=== PATIENT | male | born 1965 ===

== ENCOUNTER 2018-10-29 18:38 | Emergency (ER) | payer SELFPAY ==
[2018-10-29 18:52] VITALS: TEMP 98.1
[2018-10-29] MEDS ORDERED: Aspirin 325 mg EC Tablets PO ONE (19:35)
[2018-10-29] MEDS ORDERED: Aspirin 325 mg EC Tablets PO STA (20:06)
[2018-10-29 20:27] VITALS: O2SAT 100
[2018-10-29 20:27] LABS: BASO # 0.1 K/uL (0.0-0.2); BASO % 0.6 % (0.0-2.0); EOS # 0.2 K/uL (0.0-0.7); EOS % 1.3 % (0.0-4.0); HEMOGLOBIN 15.7 g/dL (12.0-18.0); LYMPH # 3.3 K/uL (1.0-4.3); LYMPH % 21.7 % (20.0-40.0); MEAN CELL VOLUME 90.5 fl (80.0-94.0); MEAN CORPUSCULAR HEMOGLOBIN 30.6 pg (27.0-31.0); MEAN CORPUSCULAR HGB CONC 33.8 g/dL (33.0-37.0); MEAN PLATELET VOLUME 8.4 fl (7.2-11.7); MONO # 1.1 K/uL (0.0-0.8); MONO % 7.6 % (0.0-10.0); NEUT # 10.4 K/uL (1.8-7.0); NEUT % 68.8 % (50.0-75.0); NRBC % 0.1 % (0.0-0.0); RBC 5.14 Mil/uL (4.40-5.90); RED CELL DISTRIBUTION WIDTH 13.6 % (11.5-14.5); WHITE BLOOD COUNT 15.1 K/uL (4.8-10.8)
[2018-10-29 20:33] LABS: BLOOD UREA NITROGEN 20 mg/dl (9-20); CALCIUM 10.2 mg/dL (8.4-10.2); GFR NON-AFRICAN AMERICAN > 60
[2018-10-29 21:07] VITALS: BP 172/115; PULSE 83; RESP 20
--- NOTE | 2018-10-29 21:07 | ED PDOC ---
HPI: Chest Pain Time Seen by Provider: 10/29/18 19:21 Chief Complaint (Nursing): Chest Pain Chief Complaint (Provider): Chest Pain History Per: Patient History/Exam Limitations: no limitations Onset/Duration Of Symptoms: Days (x 1 month) Current Symptoms Are (Timing): Still Present Quality: "Pain" Additional Complaint(s): 53 year old male with HTN presents to the ED for evaluation of one month of chest pain. Patient was initially saying there was no change to chest pain. However, on further questioning, he reports pain is radiating to his back and admits to feel short of breath. Patient does not know the name of his HTN medications or the name of his doctor. No nausea, vomiting, sweats and radiation to jaw, neck or arms. Past Medical History Reviewed: Historical Data, Nursing Documentation, Vital Signs Vital Signs: Last Vital Signs Temp 98.1 F 10/29/18 18:50 Pulse 88 10/29/18 20:15 Resp 18 10/29/18 18:50 BP 177/99 H 10/29/18 20:15 Pulse Ox 100 10/29/18 20:15 - Medical History PMH: HTN - Surgical History Surgical History: No Surg Hx - Family History Family History: States: Unknown Family Hx - Allergies Allergies/Adverse Reactions: Allergies Allergy/AdvReac Type Severity Reaction Status Date / Time No Known Allergies Allergy Verified 10/29/18 18:50 Review of Systems ROS Statement: Except As Marked, All Systems Reviewed And Found Negative Constitutional: Negative for: Fever Cardiovascular: Positive for: Chest Pain Respiratory: Positive for: Shortness of Breath Gastrointestinal: Negative for: Nausea, Vomiting, Abdominal Pain Musculoskeletal: Positive for: Back Pain. Negative for: Neck Pain, Arm Pain Physical Exam - Reviewed Nursing Documentation Reviewed: Yes Vital Signs Reviewed: Yes - Physical Exam Appears: Positive for: Well, Non-toxic, No Acute Distress Head Exam: Positive for: ATRAUMATIC, NORMAL INSPECTION, NORMOCEPHALIC Skin: Positive for: Normal Color, Warm, Dry Eye Exam: Positive for: EOMI, Normal appearance, PERRL Cardiovascular/Chest: Positive for: Regular Rate, Rhythm. Negative for: Gallop, Murmur, Friction Rub Respiratory: Positive for: Normal Breath Sounds. Negative for: Wheezing, Respiratory Distress Pulses-Radial (L): 2+ Pulses-Radial (R): 2+ Gastrointestinal/Abdominal: Positive for: Normal Exam, Soft. Negative for: Tenderness Extremity: Positive for: Normal ROM (x 4). Negative for: Deformity Neurological/Psych: Positive for: Awake, Alert, Normal Tone, Oriented (x 3). Negative for: Motor/Sensory Deficits - Laboratory Results Result Diagrams: 10/29/18 20:00 10/29/18 20:00 Lab Results: Troponin I 37.8000 ng/mL (0.00-0.120) H* 10/29/18 20:00 - ECG O2 Sat by Pulse Oximetry: 100 (RA) Pulse Ox Interpretation: Normal - Core Measure Core Measure Indicators: Code Heart - Critical Care Total Time (In Min): 60 Documented Critical Care: Time excludes all time spent performint seperately billable procedures Medical Decision Making Medical Decision Makin:23 MDM: cardiac workup Initial EKG showing ST elevation V2, V3 without reciprocal change. 20:[address] Colvin. Sending an image of the first EKG done at 18:46. It was read as NSR without ST/T changes. However, there is mild ST elevation. Obtaining repeat EKG. 20:54 Repeat EKG shows elevation and labs reveal troponin of 37.8. 21:[address] Cao called. 21:13 Dr. Cao returned call; States he is going to review the images and call back. 21:22 Initially, Dr. Cao was not accepting patient for admission because the patient already infarcted. However, Dr. Colvin disagrees and states he will call Dr. Geovanny fontanez directly as he still feels transfer is necessary. Will wait to hear back from either provider. 21:25 Dr. Colvin returned call; advised to hold Plavix and Heparin. Patient was already given aspirin in the ED and will go directly to the catheterization lab. Scribe Attestation: Documented by Hedy Marie, acting as a scribe Darshan Sutherland MD Provider Scribe Attestation: All medical record entries made by the Scribe were at my direction and personally dictated by me. I have reviewed the chart and agree that the record accurately reflects my personal performance of the history, physical exam, medical decision making, and the department course for this patient. I have also personally directed, reviewed, and agree with the discharge instructions and disposition. Disposition - Clinical Impression Clinical Impression: Myocardial infarct, Chest pain - Patient ED Disposition Is Patient to be Admitted: Transfer of Care - Disposition Disposition: Other Institution ([facility] cardiac catheterization) Disposition Time: 21:25 Condition: STABLE Forms: [facility] (Serbian)
[2018-10-30] MEDS ORDERED: Aspirin 325 mg EC Tablets PO SCH (09:00)
--- NOTE | 2018-10-30 11:03 | CARD ---
APPROVED REPORT Date of service: 10/29/2018 EKG Measurement Heart [id number] <Conclusion> Normal sinus rhythm Normal ECG
--- NOTE | 2018-10-30 12:58 | RAD ---
Date of service: 10/29/2018 HISTORY: possible admission COMPARISON: No prior. FINDINGS: LUNGS: No active pulmonary disease. PLEURA: No significant pleural effusion identified, no pneumothorax apparent. CARDIOVASCULAR: No atherosclerotic calcification present Normal. OSSEOUS STRUCTURES: No significant abnormalities. VISUALIZED UPPER ABDOMEN: Normal. OTHER FINDINGS: None. IMPRESSION: No active disease.
== END 2018-10-29 21:26 | disposition short-term general hospital (02) ==
LOC: H.ER 18:38
DX: I21.9 Acute myocardial infarction, unspecified (principal); R07.89 Other chest pain; I10 Essential (primary) hypertension
CPT/HCPCS: 71045; 80048; 82948; 84484; 85025; 93005; 99284; G0480